=== PATIENT | female | born 1960 | race Caucasian/White ===

== ENCOUNTER 2016-09-22 10:44 | Emergency (ER) | payer OTHER ==
--- NOTE | 2016-09-22 12:24 | DIAGNOSTIC IMAGING REPORT ---
PROCEDURE: XR CHEST 2 VIEW INDICATION: CHEST PAIN TECHNIQUE: PA and lateral views. COMPARISON: None. FINDINGS: Lungs are clear. Heart and mediastinum are normal. Thorax is normal. IMPRESSION: 1. Negative chest.
--- NOTE | 2016-09-22 13:15 | ED NURSING NOTES ---
Clinical Report - Nurses [facility] [place] [address] 09/22/2016 10:47 Patient: MARISELA NATION TRIAGE Triage time 1100 AM. Acuity: LEVEL 2. Chief Complaint: CHEST PAIN and SHORTNESS OF BREATH and DIFFICULTY BREATHING. Alert. No acute distress. SEPSIS SCREEN: Sepsis Screen. Negative (no infection suspected/documented). --11:20 Eli Diana R.N. 11:01 09/22/16. BP: 133/69 (large adult cuff) taken on the left arm, via an automated monitor, while lying. HR: 87. RR: 16 (regular and unlabored). O2 saturation: 98% on room air. Temp: 97.8 F (oral). Pain level now: 8/10. Additional comments: arthritis pain. --11:20 Eli Diana R.N. Weight: 124.7 kg stated. Height/Length: 70 inches Per Patient. BMI: 39.4. --11:01 Eli Diana R.N. Medications Aspirin Oral. --11:07 Eli Diana R.N. Simvastatin Oral. --11:07 Eli Diana R.N. Atenolol Oral. --11:08 Eli Diana R.N. Albuterol Sulfate Inhalation. --11:08 Eli Diana R.N. Tramadol HCL Oral. --11:08 Eli Diana R.N. CeleBREX Oral. --11:08 Eli Diana R.N. Allergies No Known Drug Allergy. --11:07 Eli Diana R.N. Medication/allergy information source: the patient. --11:20 Eli Diana R.N. History Arrived by private vehicle. Historian: patient. Primary physician (Dr. Ben Johnson). ( Pt states having chest pain like symptoms for about 2 months with SOB and "gasping for air" admits to dizziness, felt a "pooping feeling in her heart". Missed her 2 doctor appointments( one today) to follow-up for her "urinary tract infection" feels weak and decided to come to ED to get further evaluation. Pt does take Nitroglycerin but has not had a script in a "while"). This started yesterday. This is a recurrent problem and onset was gradual. (2 months ago). She has had fever and difficulty breathing. No sweating episodes, nausea, vomiting or cough. Treatment BATHROOM TILING PROFESSIONAL: None. PAST MEDICAL HX: Immunizations: up-to-date. Last normal menstrual period- several years. SOCIAL HX: Heavy tobacco smoker (cigarette)- less than 1 pack per day. History of occasional drug use: marijuana. (once a month). No alcohol use. No infectious disease exposure. ABUSE ASSESSMENT: No report of abuse. SELF HARM ASSESSMENT: A self harm assessment was performed. The patient answered "no" to the question "Do you have thoughts of harming or killing yourself?" and "Have you recently had thoughts about harming or killing others?". FALL RISK ASSESSMENT: Fall risk assessment completed. No fall risk identified. NUTRITIONAL RISK ASSESSMENT: The nutritional risk assessment revealed no deficiencies. FUNCTIONAL ASSESSMENT: Functional assessment: no impairments noted. LEARNING NEEDS ASSESSMENT: The learning needs assessment revealed no barriers. SKIN INTEGRITY ASSESSMENT: Skin integrity risk assessment completed. No skin integrity risk identified. --11:20 Eli Diana R.N. PROBLEMS: Hepatitis C. Pelvic Inflammatory Disease. Cervical Cancer. Knee Injury. Neck Injury. Hyperlipidemia. Hypertension. Asthma. Arthritis. Angina. --11:11 Eli Diana R.N. Urinary Incontinence. Cancer. Chronic Back Pain. Hepatitis. Obesity. --11:41 Eli Diana R.N. ADDITIONAL SURGERIES: Breast Biopsy. Tubal Ligation. --11:11 Eli Diana R.N. Interventions ID band on patient. ID and allergy band checked. CHEST PAIN protocol initiated at triage. --11:20 Eli Diana R.N. PHYSICAL ASSESSMENT Ambulatory to room. In place: compliance monitor and O2 sat monitor. GENERAL / NEURO / PSYCH: Alert. Oriented X 4. Appears in no acute distress. HEENT: Mucous membranes are pink. RESPIRATORY: Respirations not labored. Chest nontender. Breath sounds within normal limits. CVS: Normal sinus rhythm noted. Heart sounds within normal limits. Pulses within normal limits. Capillary refill less than 2 seconds. GI / : Abdomen soft and nontender. SKIN: Skin is warm and dry. Normal skin turgor. --11:20 Eli Diana R.N. NURSING PROGRESS NOTES EKG time: (1107). EKG was performed by a tech and shown to the ED physician. --11:22 Duc Escalante 11:15 09/22/2016 Aspirin PO Tablets 325 mg given. Allergies verified and confirmed 5 rights. --11:37 Eli Diana R.N. 11:28 09/22/2016 Site #1 started via IV in the left with an 22g angiocath; two attempts. Blood drawn: rainbow set. Labeled in the presence of the patient and sent to the lab. Saline lock flushed with 10 mL saline. --11:38 Eli Diana R.N. The initial plan of care for this patient has been created This plan of care was discussed with the patient. Monitoring of patient in place. EKG time: (1115 AM). Patient ID band checked for patient name, birthdate and medical record number: patient confirmed. Blood samples drawn from the left hand IV site by nurse per protocol ; labeled in presence of the patient and sent to lab: rainbow set: cardiac enzymes (1st set). Patient gowned and gowned. Warming measures: blanket applied. Reassurance given and given. Founder And Chief Technical Officer provided for the rectal exam by the physician. The patient has had no adverse reaction. GENERAL / NEURO / PSYCH: Denies anxiety. HEENT: Denies headache. RESPIRATORY: Denies difficulty breathing. No respiratory distress present. Respiratory distress present. No decreased breath sounds. GI / : Denies nausea. SKIN: Skin is warm and dry. Skin color within normal limits. Two patient identifiers checked. Call light placed in reach. Side rails up x 1. Brakes of bed on. Brakes of chair on. --11:38 Eli Diana R.N. Cardiac rhythm: normal sinus rhythm. Monitoring of patient in place. Reassurance given. The patient is calm. Patient transported to radiology by stretcher. Two patient identifiers checked. Call light placed in reach. Side rails up x 2. Bed placed in lowest position. Brakes of bed on. Brakes of chair on. --11:44 Eli Diana R.N. 11:41 09/22/16. BP: 104/69 (large adult cuff) taken on the left arm, via an automated monitor, while lying. HR: 72 (regular and normal rate). RR: 12 (regular). O2 saturation: 100%. Pain level now: 12/12. --11:44 Eli Diana R.N. 11:45 09/22/16. BP: 124/69. HR: 78. RR: 18. O2 saturation: 100% on room air. Pain level now: 11/11. --12:19 Eli Daina R.N. 11:45 PM late entry -. Cardiac rhythm: normal sinus rhythm. The patient is calm. Overall patient status is improved- she states feels better. Patient returned from radiology by stretcher. Two patient identifiers checked. Call light placed in reach. Side rails up x 2. Bed placed in lowest position. Brakes of bed on. Brakes of chair on. --12:19 Eli Diana R.N. 12:00 09/22/2016 Aspirin PO Response: no adverse reaction. --12:48 Eli Diana R.N. 12:21 09/22/2016 Started bag #1 1000 mL IV Fluids IV NS (Saline); bolus of 500 mL over 30 minute(s) then at 500 mL/hr over 1 hour(s) via site #1 via IV pump. Allergies verified and confirmed 5 rights. IV patency established. IV site checked: no pain, redness, or swelling. IV flushed thoroughly pre- and post-medication administration. --12:21 Eli Diana R.N. 13:04 09/22/2016 IV Fluids IV NS Response: no adverse reaction. --13:04 Eli Diana R.N. 13:04 09/22/2016 IV Fluids IV NS via IV site #1 Rate Changed: bag #1 decreased to 500 mL/hr via IV pump. IV patency established. IV site checked: no pain, redness, or swelling. IV flushed thoroughly. Confirmed 5 Rights. --13:04 Eli Diana R.N. Monitoring of patient in place. Reassurance given. Reassessment after fluids administered. She reports no complaints. Overall patient status is improved- she states feels better. RESPIRATORY: Denies difficulty breathing. CVS: Denies chest pain. Call light placed in reach. --13:10 Eli Diana R.N. 13:09/22/16. BP: 117/87 (large adult cuff) taken on the right arm, while lying. HR: 68. RR: 18. O2 saturation: 98% on room air. Pain level now: 0/10. --13:10 Eli Diana R.N. 14:00 09/22/2016 Bactrim DS (Sulfamethoxazole-TMP DS) PO 1 tab given. Allergies verified and confirmed 5 rights. --14:00 Beryl Carrizales R.N. ( First meeting with pt at discharge.). --14: Beryl Carrizales R.N. 14:09/22/2016 Site #1 removed upon discharge. Pressure dressing applied. --14: Beryl Carrizales R.N. 14:09/22/2016 IV Fluids IV NS Discontinued: bag #1 infused upon discharge. Total amount infused: 950 mL. IV patency established. IV site checked: no pain, redness, or swelling. IV flushed thoroughly. --14: Beryl Carrizales R.N. DISPOSITION / DISCHARGE Condition at departure: improved and stable. No learning barriers present. Patient verbalized understanding. Written instructions provided in [place]. The patient was discharged by the physician. She was discharged home. She left the Emergency Department ambulatory and via bus. --14:11 Beryl Carrizales R.N. 14:09/22/16. BP: 117/56. HR: 77. RR: 18. O2 saturation: 99%. --14:11 Beryl Carrizales R.N. Departure time: 14:Sep 22 2016. --14:11 Beryl Carrizales R.N. The patient left the Emergency Department against medical advice. The patient appears to be oriented x4, coherent and in no acute distress. She stated is leaving the ED due to personal reasons (I'm not staying in the hospital, based on my previous experiences, I'm going home".). --14:14 Beryl Carrizales R.N. Locked/Released at 09/22/2016 19:21 by Beryl Carrizales R.N.
--- NOTE | 2016-09-22 13:15 | ED CLINICAL REPORT ---
Clinical Report - Physicians/Mid Levels [facility] [address] [place] [address] 09/22/2016 10:47 Patient: MARISELA NATION Time Seen: 11:18. Arrived- By private vehicle. Historian- patient. HISTORY OF PRESENT ILLNESS Chief Complaint: CHEST DISCOMFORT. This started yesterday recurrent symptoms since yesterday, but has had on and off chest pain for 2 months and UTI symptoms intermittently for weeks and is still present. It was gradual in onset and has been waxing/waning. Onset during light activity. At its maximum, severity described as moderate. When seen in the E.D., severity described as mild. Modifying factors- worsened by movement. Relieved by rest. It is described as dull and well localized and it is described as located in other area (lower left sternal area) and the epigastric area. No radiation. No nausea, vomiting, difficulty breathing or diaphoresis. No additional chest pain. (Pt states having chest pain like symptoms for about 2 months with SOB and "gasping for air" admits to dizziness, felt a "pooping feeling in her heart". Missed her 2 doctor appointments( one today) to follow-up for her "urinary tract infection" feels weak and decided to come to ED to get further evaluation. Pt does take Nitroglycerin but has not had a script in a "while"). Similar symptoms previously: Recent medical care: Not recently seen/assessed. REVIEW OF SYSTEMS No fever, chills, pedal edema, calf pain or fainting episodes. No headache, sore throat, blurred vision, black stools or difficulty with urination. No skin rash, enlarged lymph nodes or bloody stools. The patient has had a mild nonproductive cough. No blood tinged sputum or frankly bloody sputum. She has had moderate, crampy, intermittent abdominal pain (none now, but has noted over past several months occasionally). The pain is described as generalized. She has had joint pain. Has had similar previous symptoms of joint pain. All systems otherwise negative, except as recorded above. PAST HISTORY Primary physician (Dr. Ben Johnson). Angina pectoris. Hypertension. Asthma. Hyperlipidemia. Type C hepatitis. Gallstones. Pelvic Inflammatory Disease. Arthritis. Chronic back pain. Obesity. History of cervical cancer. (chronic lower extremity edema Chronic neck pain). Surgeries: Breast biopsy. Tubal ligation. SOCIAL HISTORY Smoker- current status unknown. Occasional alcohol use. History of drug use: marijuana. ADDITIONAL NOTES The nursing notes have been reviewed. PHYSICAL EXAM Vital Signs: 09/22/2016 11:01 BP: 133/69. HR: 87. RR: 16. O2 saturation: 98%. Temp: 97.8 F. Pain level now: 04/13. Appearance: Alert. Oriented X3. No acute distress. Eyes: Pupils equal, round and reactive to light. Eyes normal inspection. No scleral icterus or pale conjunctivae. ENT: Pharynx normal. No pharyngeal erythema or tonsillar exudate. The mucous membranes are not dry. Neck: Normal inspection. Neck supple. No JVD, meningeal signs, lymphadenopathy or thyromegaly. CVS: Normal heart rate and rhythm. Heart sounds normal. Pulses normal. Respiratory: No respiratory distress. Chest pain reproducible (lower left chest wall anteriorly). Breath sounds normal. No decreased air movement, rales, rhonchi, wheezes or prolonged expiration. Abdomen: Soft and nontender. No mass. Obese. Back: Normal external inspection. Skin: Skin warm and dry. Normal skin color. No rash. Normal skin turgor. Extremities: Extremities exhibit normal ROM. No calf tenderness. Neuro: Oriented X 3. No motor deficit. No sensory deficit. LABS, X-RAYS, AND EKG EKG: EKG time: (11:07). Normal sinus rhythm. Rate: 75. Normal P waves. Normal GLEN. Normal QRS complex. Normal axis. Normal ST and T waves. The study has been interpreted contemporaneously by me. The EKG appears to be a good tracing. Rhythm Strip #1: Normal sinus rhythm. Regular rhythm. Narrow QRS complexes. Chest X-ray: No acute disease. Normal lung markings present. Normal heart size. Mediastinum normal. Great vessels normal. No infiltrate. Views: PA and lateral. Technique: good. The X-rays were interpreted contemporaneously by me. Laboratory Tests: UA-Culture if indicated: (BROOK: 09/22/2016 12:28) ( MsgRcvd 09/22/2016 12:53) Final results Test Result Flag Units (Reference) URINE COLOR STRAW URINE APPEARANCE CLEAR URINE GLUCOSE NEGATIVE (NEGATIVE) URINE BILIRUBIN NEGATIVE (NEGATIVE) URINE KETONE TRACE (NEGATIVE) URINE SPECIFIC GRAVITY 1.025 (1.010-1.030) URINE PH 6.0 (5.0-8.0) URINE PROTEIN NEGATIVE (NEGATIVE) URINE UROBILINOGEN 0.2 EU/dL (0.2-1.0) URINE NITRITE NEGATIVE (NEGATIVE) URINE BLOOD NEGATIVE (NEGATIVE) URINE LEUK ESTERASE TRACE (NEGATIVE) URINE RBC 3-5 rbc/hpf (0-1) URINE WBC 5-10 wbc/hpf (0-1) URINE EPITHELIAL CELLS 1-3 EPI/hpf (0-5) URINE BACTERIA MODERATE (2+ TO 3+) (NONE SEEN) URINE COMMENT CULTURE INDICATED URINE CULTURES ARE SET-UP BASED ON THE FOLLOWING CRITERIA:POSITIVE NITRITEPOSITIVE LEUKOCYTE ESTERASEGREATER THAN 10 WHITE BLOOD CELLSMODERATE (2+) OR GREATER BACTERIA CBC w Diff: (BROOK: 09/22/2016 11:35) ( MsgRcvd 09/22/2016 11:44) Final results Test Result Flag Units (Reference) WHITE BLOOD COUNT 11.9 H K/uL (4.5-11.5) RED BLOOD COUNT 4.63 M/uL (4.00-5.20) HEMOGLOBIN 13.3 gm/dL (12.0-16.0) HEMATOCRIT 40.7 % (36.0-46.0) MEAN CELL VOLUME 88 fL (80-100) MEAN CORPUSCULAR HGB 29 pg (26-34) MEAN CORPUSCULAR HGB CONC 33 g/dL (31-37) RED CELL DISTRIBUTION WIDTH 14.9 H % (11.6-14.8) PLATELET COUNT 271 K/uL (150-400) NEUTROPHIL % 40.7 L % (50-75) LYMPH % 48.3 H % (25-40) MONO % 9.2 % (3-14) EOSINOPHIL % 1.2 % (0-4) BASOPHIL % 0.6 % (0-2) [id number]: (BROOK: 09/22/2016 11:35) ( MsgRcvd 09/22/2016 11:52) Final results Test Result Flag Units (Reference) D-DIMER QUANTITATIVE 0.45 ug/mLFEU (0.27-0.52) The primary value of this quantitative assay relates toits negative predictive value (i.e. exclusion) of pulmonaryembolism/deep vein thrombosis/DIC.Elevated levels of d-dimer may also occur with:, age, cancer, inflammation, liver disease,post-op, infection, hematoma, coronary disease, peripheralarteriopathy, bleeding disorders and thrombolytic treatment.Results should be correlated with other clinical andradiological data.Testing Methodology: Latex Immunoassay Urine Drug Screen: (BROOK: 09/22/2016 12:28) ( [facility] 09/22/2016 13:00) Final results Test Result Flag Units (Reference) AMPHETAMINE/METHAMPHETAMINE NEGATIVE (NEGATIVE) BARBITURATE NEGATIVE (NEGATIVE) BENZODIAZEPINE NEGATIVE (NEGATIVE) CANNABINOID NEGATIVE (NEGATIVE) COCAINE POSITIVE H (NEGATIVE) ECSTASY NEGATIVE (NEGATIVE) METHADONE NEGATIVE (NEGATIVE) OPIATE NEGATIVE (NEGATIVE) The urine drug screen is a qualitative screening test fordrug overdose and abuse. All screen results should beconsidered as presumptive.Drugs screened for are as follows:BenzodiazepinesCocaineAmphetamines/MetamphetaminesTHC (Tetrahydrocannabinol)OpiatesBarbituratesEcstasyMethadonePositive results are unconfirmed. For confirmation, notifythe lab for the specimen to be sent to the reference lab.All confirmations must be performed by a differentmethodology.The ingestion of natural herbal and plant productscontaining Ephedra/Ephedra metabolites can produce in urineone or more substances capable of cross reacting withamphetamine/methamphetamine immunoassays. These testsprovide a preliminary result only. A more specificalternative chemical method must be used to obtain aconfirmed analytical result. BNP: (BROOK: 09/22/2016 11:35) ( RigRcvd 09/22/2016 12:03) Final results Test Result Flag Units (Reference) B-TYPE NATRIURETIC PEPTIDE 48.1 pg/ml (5-100) CHEM 13 PANEL: (BROOK: 09/22/2016 11:35) ( MsgRcvd 09/22/2016 12:48) Final results Test Result Flag Units (Reference) GLUCOSE 134 H mg/dL (70-110) BUN 13 mg/dL (7-18) CREATININE 0.9 mg/dL (0.6-1.3) Estimated GFR >60 mL/min Estimated GFR- >60 mL/min Note: Persistent reduction over 3 months in eGFR<60 mL/min/1.73 m2 defines CKD. Patients with eGFR values>=60 mL/min/1.73 m2 may also have CKD if evidence ofpersistent proteinuria. Additional information may be foundat [email or web address].org. SODIUM 140 mmol/L (136-145) POTASSIUM 4.4 mmol/L (3.5-5.1) CHLORIDE 104 mmol/L (98-107) CARBON DIOXIDE 26 mmol/L (21-32) CALCIUM 8.4 L mg/dL (8.5-10.1) TOTAL PROTEIN 7.4 g/dL (6.4-8.2) ALBUMIN 3.4 g/dL (3.3-5.0) BILIRUBIN, TOTAL 0.3 mg/dL (0.0-1.0) ALKALINE PHOSPHATASE 110 U/L (46-116) AST (SGOT) 60 H U/L (15-37) ALT (SGPT) 91 H U/L (12-78) CPK 80 U/L (24-260) TROPONIN I <0.05 ng/mL (0.00-1.5) TROPONIN REFERENCE RANGE:<0.1 NEGATIVE0.1-1.5 INDETERMINANT>1.5 POSITIVE MAGNESIUM 2.0 mg/dL (1.8-2.4) AMYLASE 28 U/L (25-115) ACETAMINOPHEN 0 L ug/mL (10-30) . Pulse Oximetry: 09/22/2016 11:01 O2 saturation: 98%. (FIO2 - room air). Interpretation: normal. PROGRESS AND PROCEDURES Course of Care: Normal Saline 1 liter IVPB given. ASA 325 mg PO given. Bactrim DS 1 tab PO. 13:39 09/22/16. After long discussion with pt, she is refusing admission, despite my strong recommendations. Patient/family counseled. Old ED records reviewed. Patient has had multiple ED visits. Disposition: Not admitted. Discharged. Condition: stable and improved. CLINICAL IMPRESSION Precordial chest pain characterized as "discomfort" .12 lead EKG performed. Gallbladder disease with gallstone (by history). Occasional substance abuse- marijuana, cocaine with drug induced mood disorder. Abnormal liver function test: AST/SGOT and ALT/SGPT (with history of chronic hepatitis C). Acute urinary tract infection with cystitis. Constipation INSTRUCTIONS Avoid stimulants (such as cigarettes, coffee, cold medicines, sinus medicines, street drugs). Avoid alcohol and NSAIDS. Examples of NSAIDS include aspirin, ibuprofen (Advil) and naproxen (Aleve). Avoid fatty, fried/greasy, lactose-containing (such as milk, cheese and ice cream), salty and spicy foods. Drink plenty of fluids. Do not smoke. Seek medical help to quit smoking. Warnings: Further evaluation is necessary in order to recheck abnormal lab, obtain test results, conduct further tests and assess the possibility of serious illness. It is very important to follow up with a physician. GENERAL WARNINGS: Return or contact your physician immediately if your condition worsens or changes unexpectedly, if not improving as expected, or if other problems arise. Prescription Medications: Hydrocodone/APAP 5mg / 325mg: take 1-2 orally every 6 hours as needed for pain. Dispense ten (10). No refill. Trimethoprim-Sulfamethoxazole DS: take 1 tablet orally every 12 hours for 7 days. Dispense fourteen (14). No refills. OTC Medications: Take aspirin, Colace, Dulcolax, magnesium citrate and Fleets enema according to label instructions. Available over the counter. (325 mg / day) Robitussin DM cough syrup (available over the counter): take according to label instructions Follow-up: Follow up with your doctor Tocher or his collegue tomorrow. AMA warnings: Oriented to person, place, and time. Gives appropriate answers and rational explanation of refusal of care. No indication for involuntary commitment is present, signs of psychosis, auditory hallucinations, delusional thinking or suicidal ideations. No slurred speech, visual hallucinations or homicidal ideations. Speaks coherently. Abstract thinking intact. Clinical Impression: the patient has the capacity to make decisions regarding the medical care offered. Relevant issues reviewed and discussed with the patient. The suspected diagnosis, based upon the initiated medical screening exam, is cocaine and chest pain and has been discussed with the patient. Acknowledges understanding of the reasons for recommendations regarding medical tests, admission to facility and further observation. The recommended medical care being refused is hospital admission and has been discussed with the patient. The risks of refusing recommended care that were disclosed are and permanent mental impairment. Discharge instructions were provided. REFUSAL OF CARE STATEMENT (patient to review and sign in discharge instructions): I have read this paragraph. I understand that a doctor at this hospital wants to give me certain medical care. The doctor explained that care to me, and I understand what that care is. The doctor also explained to me what could happen to me if I leave here without having that care, and I understand what he said. I know that I am welcome to return to this hospital at any time to receive the recommended care or any other care that I may need at any time, regardless of my ability to pay for such care. (Electronically signed by Bentley Luther DO 09/23/2016 7:55)
--- NOTE | 2016-09-22 13:15 | ED ORDER SUMMARY ---
..... Patient: MARISELA NATION OrderSheet [facility] VisitID: [id number] [place] [address] 56y, F Registration Date/Time: 09/22/2016 ORDER SHEET Weight: 124.7 kg (stated) Allergies: No Known Drug Allergy GENERAL ORDERS: Chest 2V Urgent (11:09/22/2016 [facility] DO) (Ack 11:21 LTapper) (11:42 EHassan R.N.) Emergency Services Director (Continuous) (:09/22/2016 [facility] ) (11:42 EHassan R.N.) UA-Culture if indicated Urgent (:09/22/2016 [facility]) (Ack 11:21 LTapper) (12:47 EHassan R.N.) Cardiac Panel Stat (09/22/2016 [facility]) (Ack 11:21 LTapper) (11:42 EHassan R.N.) BNP Urgent (11:09/22/2016 [facility] DO) (Ack 11:21 LTapper) (11:42 EHassan R.N.) D-[facility]imer [facility] (Ack 11:21 LTapper) (11:42 EHassan R.N.) Amylase Urgent (11:09/22/2016 [facility]als[facility] DO) (Ack 11:21 LTapper) (11:42 EHassan R.N.) [facility]ulse [facility]xim[facility] (11:42 EHassan R.N.) EKG - ER Stat ([facility] (Ack 11:21 LTapper) (11:21 LTapper) Vitals (11:[facility]22/2016 [facility] (11:42 EHassan R.N.) Urine Drug Screen Urgent (11:09/22/2016 [facility] (Ack 11:28 LTapper) (12:47 EHassan R.N.) Acetaminophen Level Urgent (11:23 [facility]22/2016 [facility] (Ack 11:28 LTapper) (12:20 EHassan R.N.) MEDICATION ORDERS: Aspirin PO 325 mg (Do not crush or chew, NOW) (11:19 09/22/2016 akryna SPICER) (11:37 Nithya R.N.) Bactrim DS PO (Tablet 800-160 mg) 1 tab (NOW) (13:12 [facility]/22/2016 [facility] (Ack 13:56 Juan C R.N.) (14:00 Chakae R.N.) IV FLUIDS: IV NS : initial bolus 500 mL (1000 mL/hr), then 500 mL/hr for X3 (NOW) (11:19 09/22/2016 [facility]) (12:21 EHassan R.N.) ORDER SHEET NOTES: [Electronically signed by Beryl Carrizales R.N. (19:21 09/22/2016)] [Electronically signed by Bentley Luther DO (07:55 09/23/2016)] [Electronically locked/signed by Beryl Carrizales R.N. (19:21 09/22/2016)]
--- NOTE | 2016-09-22 13:15 | ED ORDER SUMMARY ---
..... Patient: MARISELA NATION OrderSheet [facility] VisitID: [id number] [place] [address] 56y, F Registration Date/Time: 09/22/2016 ORDER SHEET Weight: 124.7 kg (stated) Allergies: No Known Drug Allergy GENERAL ORDERS: Chest 2V Urgent ([facility] (Ack 11:21 LTapper) (11:42 EHassan R.N.) Window Covering Sales Consultant (Continuous) (:09/22/2016 [facility] (11:42 EHassan R.N.) UA-Culture if indicated Urgent (:09/22/2016 [facility]) (Ack 11:21 LTapper) (12:47 EHassan R.N.) Cardiac Panel Stat (09/22/2016 [facility]) (Ack 11:21 LTapper) (11:42 EHassan R.N.) BNP Urgent (11:09/22/2016 [facility]) (Ack 11:21 LTapper) (11:42 EHassan R.N.) D-Dimer Urgent ([facility]/2016 [facility] (Ack 11:21 LTapper) (11:42 EHassan R.N.) Amylase Urgent (11:09/22/2016 [facility] DO) (Ack 11:21 LTapper) (11:42 EHassan R.N.) Pulse oximeter (11:09/22/2016 [facility]) (11:42 EHassan R.N.) EKG - ER Stat ([facility]22/2016 [facility] (Ack 11:21 LTapper) (11:21 LTapper) Vitals (11:09/22/2016 [facility]) (11:42 EHassan R.N.) Urine Drug Screen Urgent (11:09/22/2016 [facility]) (Ack 11:28 LTapper) (12:47 EHassan R.N.) Acetaminophen Level Urgent (11:23 09/22/2016 [facility] (Ack 11:28 LTapper) (12:20 EHassan R.N.) MEDICATION ORDERS: Aspirin PO 325 mg (Do not crush or chew, NOW) (11:19 09/22/2016 karyna SPICER) (11:37 Nithya R.N.) Bactrim DS PO (Tablet 800-160 mg) 1 tab (NOW) (13:12 [facility]/22/2016 [facility] (Ack 13:56 Juan C R.N.) (14:00 Chakae R.N.) IV FLUIDS: IV NS : initial bolus 500 mL (1000 mL/hr), then 500 mL/hr for X3 (NOW) (11:19 09/22/2016 [facility]) (12:21 EHassan R.N.) ORDER SHEET NOTES: [Electronically signed by Beryl Carrizales R.N. (19:21 09/22/2016)] [Electronically signed by Bentley Luther DO (07:55 09/23/2016)] [Electronically locked/signed by Beryl Carrizales R.N. (19:21 09/22/2016)]
--- NOTE | 2016-09-23 07:56 | ED MAR SUMMARY ---
..... Medication Administration Record [facility] [address] [place] [address] Patient: MARISELA NATION Visit ID: [id number] 56y, F Weight: 124.7 kg Height/Length: 70 in BMI: 39.4 ALLERGIES: No Known Drug Allergy Given 11:15 09/22/2016 Eli Diana R.N. Medication Administered: ASPIRIN [PO], Dose: 325 mg Tablets PO. Medication Ordered: Aspirin PO 325 mg (Do not crush or chew, NOW). Start 12:21 09/22/2016 Eli Diana R.N., Stop 14:09 09/22/2016 Beryl Carrizales R.N. Medication Administered: IV NS (SALINE), Dose: IV Fluids over 1 hour(s), Rate: 500 mL/hr, Bolus: 500 mL over 30 minute(s), Dispensed: 1000 mL bag, Site: #1 left. Medication Ordered: IV NS : initial bolus 500 mL (1000 mL/hr), then 500 mL/hr for X3 (NOW). Given 14:00 09/22/2016 Beryl Carrizales R.N. Medication Administered: BACTRIM DS [PO] (SULFAMETHOXAZOLE-TMP DS), Dose: 1 tab PO. Medication Ordered: Bactrim DS PO (Tablet 800-160 mg) 1 tab (NOW).
--- NOTE | 2016-09-23 07:56 | ED MAR SUMMARY ---
..... Medication Administration Record [facility] [address] [place] [address] Patient: MARISELA NATION Visit ID: [id number] 56y, F Weight: 124.7 kg Height/Length: 70 in BMI: 39.4 ALLERGIES: No Known Drug Allergy Given 11:15 09/22/2016 Eli Diana R.N. Medication Administered: ASPIRIN [PO], Dose: 325 mg Tablets PO. Medication Ordered: Aspirin PO 325 mg (Do not crush or chew, NOW). Start 12:21 09/22/2016 Eli Diana R.N., Stop 14:09 09/22/2016 Beryl Carrizales R.N. Medication Administered: IV NS (SALINE), Dose: IV Fluids over 1 hour(s), Rate: 500 mL/hr, Bolus: 500 mL over 30 minute(s), Dispensed: 1000 mL bag, Site: #1 left. Medication Ordered: IV NS : initial bolus 500 mL (1000 mL/hr), then 500 mL/hr for X3 (NOW). Given 14:00 09/22/2016 Beryl Carrizales R.N. Medication Administered: BACTRIM DS [PO] (SULFAMETHOXAZOLE-TMP DS), Dose: 1 tab PO. Medication Ordered: Bactrim DS PO (Tablet 800-160 mg) 1 tab (NOW).
--- NOTE | 2016-09-23 07:56 | ED MED RECONCILIATION SUMMARY ---
Patient: MARISELA NATION Medication Reconciliation Report [facility] VisitID: [id number] [address] [place] [address] 56y, F Registration Date/Time: 09/22/2016 Weight: 124.7 kg Height/Length: 70 in. BMI: 39.4 ALLERGIES: No Known Drug Allergy The patient's Home Medications are listed below: THE FOLLOWING MEDICATIONS NEED TO BE RECONCILED: Albuterol Sulfate Inhalation Aspirin Oral Atenolol Oral CeleBREX Oral Simvastatin Oral Tramadol HCL Oral The source(s) of the original Home Medication information: patient The following Medications were given to the patient in the Emergency Department: Aspirin [PO] PO 325 mg, administered: 09/22/2016 11:15:00 AM IV NS IV Fluids bolus 500 mL over 30 minute(s), then 500 mL/hr, administered: 09/22/2016 12:21:00 PM Bactrim DS [PO] PO 1 tab, administered: 09/22/2016 2:00:00 PM The following Medications were prescribed to the patient: Take aspirin, Colace, Dulcolax, magnesium citrate and Fleets enema according to label instructions. Available over the counter.(325 mg / day) -- Bentley Luther DO Robitussin DM cough syrup (available over the counter): take according to label instructions -- Bentley Luther DO Hydrocodone/APAP 5mg / 325mg: take 1-2 orally every 6 hours as needed for pain. Dispense ten (10). No refill. -- Bentley Luther DO Trimethoprim-Sulfamethoxazole DS: take 1 tablet orally every 12 hours for 7 days. Dispense fourteen (14). No refills. -- Bentley Luther DO
--- NOTE | 2016-09-23 07:56 | ED DISCHARGE INSTRUCTIONS ---
Patient: MARISELA NATOIN General Instructions [facility] VisitID: [id number] [place] [address] 56y, F Registration Date/Time: 09/22/2016 Precordial chest pain characterized as "discomfort" .12 lead EKG performed. Gallbladder disease with gallstone (by history). Occasional substance abuse- marijuana, cocaine with drug induced mood disorder. Abnormal liver function test: AST/SGOT and ALT/SGPT (with history of chronic hepatitis C). Acute urinary tract infection with cystitis. Constipation INSTRUCTIONS Avoid stimulants (such as cigarettes, coffee, cold medicines, sinus medicines, street drugs). Avoid alcohol and NSAIDS. Examples of NSAIDS include aspirin, ibuprofen (Advil) and naproxen (Aleve). Avoid fatty, fried/greasy, lactose-containing (such as milk, cheese and ice cream), salty and spicy foods. Drink plenty of fluids. Do not smoke. Seek medical help to quit smoking. Warnings: Further evaluation is necessary in order to recheck abnormal lab, obtain test results, conduct further tests and assess the possibility of serious illness. It is very important to follow up with a physician. GENERAL WARNINGS: Return or contact your physician immediately if your condition worsens or changes unexpectedly, if not improving as expected, or if other problems arise. Prescription Medications: Hydrocodone/APAP 5mg / 325mg: take 1-2 orally every 6 hours as needed for pain. Dispense ten (10). No refill. Trimethoprim-Sulfamethoxazole DS: take 1 tablet orally every 12 hours for 7 days. Dispense fourteen (14). No refills. OTC Medications: Take aspirin, Colace, Dulcolax, magnesium citrate and Fleets enema according to label instructions. Available over the counter. (325 mg / day) Robitussin DM cough syrup (available over the counter): take according to label instructions Follow-up: Follow up with your doctor Tocher or his collegue tomorrow. AMA warnings: Oriented to person, place, and time. Gives appropriate answers and rational explanation of refusal of care. No indication for involuntary commitment is present, signs of psychosis, auditory hallucinations, delusional thinking or suicidal ideations. No slurred speech, visual hallucinations or homicidal ideations. Speaks coherently. Abstract thinking intact. Clinical Impression: the patient has the capacity to make decisions regarding the medical care offered. Relevant issues reviewed and discussed with the patient. The suspected diagnosis, based upon the initiated medical screening exam, is cocaine and chest pain and has been discussed with the patient. Acknowledges understanding of the reasons for recommendations regarding medical tests, admission to facility and further observation. The recommended medical care being refused is hospital admission and has been discussed with the patient. The risks of refusing recommended care that were disclosed are and permanent mental impairment. Discharge instructions were provided. REFUSAL OF CARE STATEMENT (patient to review and sign in discharge instructions): I have read this paragraph. I understand that a doctor at this hospital wants to give me certain medical care. The doctor explained that care to me, and I understand what that care is. The doctor also explained to me what could happen to me if I leave here without having that care, and I understand what he said. I know that I am welcome to return to this hospital at any time to receive the recommended care or any other care that I may need at any time, regardless of my ability to pay for such care. ADDITIONAL INFORMATION Constipation (Adult) Constipation is bowel movements that are less frequent than usual. Stools often become very hard and difficult to pass. This may lead to abdominal pain and bloating. It may also cause painful bowel movements. Constipation may be due to a diet thats low in fiber. Some medications, especially pain medications, can also cause it. Constipation may be treated with enemas, suppositories, laxatives or stool softeners. Your doctor will advise you which will work best for you. Follow the advice below to help avoid this problem in the future. Home Care Medication: Take any medicines as directed. Some laxatives are safe only for occasional use. Others can be taken on a regular basis. Talk to your doctor or pharmacist if you have questions. General Care: Prescription pain medications can cause constipation. If you are prescribed pain medications, ask the doctor whether you should also take a stool softener. A diet high in fiber with plenty of fluids helps to maintain regular, soft bowel movements. The following foods are good sources of dietary fiber: Cereals and breads: Whole grain cereal with bran, oatmeal, rolled oats, whole grain breads Fruits: All fruits (fresh and dried), raisins, prunes, apricots, berries, figs Vegetables: Any fresh vegetables, especially peas, broccoli, brussels sprouts, winter squash, green beans, cauliflower, art beans, carrots Other: Popcorn, brown rice Drink plenty of water when you increase the amount of fiber you eat. Follow Up with your doctor or return to this facility if symptoms do not improve in the next few days. You may require further tests or a referral to a specialist. Get Prompt Medical Attention if any of the following occur: Fever over 100.4F (38C) Failure to resume normal bowel movements Increasing abdominal or back pain Nausea or vomiting Abdominal swelling Blood in the stool Weakness, dizziness or fainting Unexpected vaginal bleeding [place] Diet A bland diet is used for patients with an upset stomach. It consists of foods that are mild and easy to digest. It is better to eat small frequent meals rather than three large meals a day. BEVERAGES OK: Fruit juices, non-caffeinated teas and coffee, non-carbonated meneses AVOID: Carbonated beverage, caffeinated tea and coffee, all alcoholic beverages BREAD OK: Refined white, wheat or rye bread, tasia or soda crackers, [place] toast, plain rolls, bagels AVOID: Whole-grain bread CEREAL OK: Refined cereals: cooked or ready to eat AVOID: Whole grain cereals and granola, or those containing bran, seeds or nuts DESSERTS OK: Peanut butter and all others except those to "avoid" AVOID: Chocolate, cocoa, coconut, popcorn, nuts, seeds, jam, marmalade FRUITS OK: Canned, cooked, frozen or fresh fruits without seeds or tough skin AVOID: Olives, skin and seeds of fruit MEATS OK: All fresh or preserved meat, fish and fowl AVOID: Any that are prepared with those spices to "avoid" CHEESE & EGGS OK: Eggs, cottage cheese, cream cheese, other cheeses AVOID: All cheeses made with those spices to "avoid" POTATOES & PASTA OK: Potato, rice, macaroni, noodles, spaghetti AVOID: None SOUPS OK: All soups without heavy seasoning AVOID: Soups made with those spices to "avoid" VEGETABLES OK: Canned, cooked, fresh or frozen mildly flavored vegetables without seeds, skins or coarse fiber AVOID: Vegetables prepared with those spices to "avoid"; skin and seeds of vegetables and those with coarse fiber SPICES OK: Salt, lemon and pok[place] juice, vinegar, all extracts, alexandrea, cinnamon, thyme, mace, allspice, paprika AVOID: [place] powder, cloves, pepper, seed spices, garlic, gravy pickles, highly seasoned salad dressings How To Quit Smoking Smoking is one of the hardest habits to break. About half of all those who have ever smoked have been able to quit, and most of those (about 70%) who still smoke want to quit. Here are some of the best ways to stop smoking. Keep Trying: It takes most smokers about 8 tries before they are finally able to fully quit. So, the more often you try and fail, the better your chance of quitting the next time! So, don't give up! Go Cold [place]: Most ex-smokers quit cold turkey. Trying to cut back gradually doesn't seem to work as well, perhaps because it continues the smoking habit. Also, it is possible to fool yourself by inhaling more while smoking fewer cigarettes. This results in the same amount of nicotine in your body! Get Support: Support programs can make an important difference, especially for the heavy smoker. These groups offer lectures, methods to change your behavior and peer support. Call the free national Quitline for more information. 897-CJOJ-HGO (094-916-7274). Low-cost or free programs are offered by many hospitals, local chapters of the [place] [employer] (564-469-3216) and the [place] [employer] (093-574-0315). Support at home is important too. Non-smokers can help by offering praise and encouragement. If the smoker fails to quit, encourage them to try again! Knvi-Avo-Enilvbz Medicines: For those who can't quit on their own, Nicotine Replacement Therapy (NRT) may make quitting much easier. Certain aids such as the nicotine patch, gum and lozenge are available without a prescription. However, it is best to use these under the guidance of your doctor. The skin patch provides a steady supply of nicotine to the body. Nicotine gum and lozenge gives temporary bursts of low levels of nicotine. Both methods take the edge off the craving for cigarettes. WARNING: If you feel symptoms of nicotine overdose, such as nausea, vomiting, dizziness, weakness, or fast heartbeat, stop using these and see your doctor. Prescription Medicines: After evaluating your smoking patterns and prior attempts at quitting, your doctor may offer a prescription medicine such as bupropion (Zyban, Wellbutrin), varenicline (Chantix, Champix), a niocotine inhaler or nasal spray. Each has its unique advantage and side effects which your doctor can review with you. Health Benefits Of Quitting: The benefits of quitting start right away and keep improving the longer you go without smokin minutes: blood pressure and pulse return to normal 8 hours: oxygen levels return to normal 2 days: ability to smell and taste begins to improve as damaged nerves start to regrow 2-3 weeks: circulation and lung function improves 1-9 months: decreased cough, congestion and shortness of breath; less tired 1 year: risk of heart attack decreases by half 5 years: risk of lung cancer decreases by half; risk of stroke becomes the same as a non-smoker For information about how to quit smoking, visit the following links: National Cancer [place] , Clearing the Air, Quit Smoking Today - an online booklet. http://www.smokefree.gov/pubs/clearing_the_air.pdf Smokefree.gov http://smokefree.gov/ QuitNet http://www.quitnet.com/ Hydrocodone Bitartrate, Acetaminophen Oral tablet What is this medicine? ACETAMINOPHEN; HYDROCODONE (a set a VIKASH geovanni fen; valerie droe KOE done) is a pain reliever. It is used to treat mild to moderate pain. How should I use this medicine? Take this medicine by mouth. Swallow it with a full glass of water. Follow the directions on the prescription label. If the medicine upsets your stomach, take the medicine with food or milk. Do not take more than you are told to take. Talk to your dispatch machine runner regarding the use of this medicine in children. This medicine is not approved for use in children. What side effects may I notice from receiving this medicine? Side effects that you should report to your doctor or health plant health care technician as soon as possible: allergic reactions like skin rash, itching or hives, swelling of the face, lips, or tongue breathing problems confusion feeling faint or lightheaded, falls stomach pain yellowing of the eyes or skin Side effects that usually do not require medical attention (report to your doctor or health plant health care technician if they continue or are bothersome): nausea, vomiting stomach upset What may interact with this medicine? alcohol antihistamines isoniazid medicines for depression, anxiety, or psychotic disturbances medicines for sleep muscle relaxants naltrexone narcotic medicines (opiates) for pain phenobarbital ritonavir tramadol What if I miss a dose? If you miss a dose, take it as soon as you can. If it is almost time for your next dose, take only that dose. Do not take double or extra doses. Where should I keep my medicine? Keep out of the reach of children. This medicine can be abused. Keep your medicine in a safe place to protect it from theft. Do not share this medicine with anyone. Selling or giving away this medicine is dangerous and against the law. Store at room temperature between 15 and 30 degrees C (59 and 86 degrees F). Protect from light. Keep container tightly closed. Throw away any unused medicine after the expiration date. Discard unused medicine and used packaging carefully. Pets and children can be harmed if they find used or lost packages. What should I tell my health care provider before I take this medicine? They need to know if you have any of these conditions: brain tumor Crohn's disease, inflammatory bowel disease, or ulcerative colitis drink more than 3 alcohol-containing drinks per day drug abuse or addiction head injury heart or circulation problems kidney disease or problems going to the bathroom liver disease lung disease, asthma, or breathing problems an unusual or allergic reaction to acetaminophen, hydrocodone, other opioid analgesics, other medicines, foods, dyes, or preservatives or trying to get breast-feeding What should I watch for while using this medicine? Tell your doctor or health plant health care technician if your pain does not go away, if it gets worse, or if you have new or a different type of pain. You may develop tolerance to the medicine. Tolerance means that you will need a higher dose of the medicine for pain relief. Tolerance is normal and is expected if you take the medicine for a long time. Do not suddenly stop taking your medicine because you may develop a severe reaction. Your body becomes used to the medicine. This does NOT mean you are addicted. Addiction is a behavior related to getting and using a drug for a non-medical reason. If you have pain, you have a medical reason to take pain medicine. Your doctor will tell you how much medicine to take. If your doctor wants you to stop the medicine, the dose will be slowly lowered over time to avoid any side effects. You may get drowsy or dizzy when you first start taking the medicine or change doses. Do not drive, use machinery, or do anything that may be dangerous until you know how the medicine affects you. Stand or sit up slowly. There are different types of narcotic medicines (opiates) for pain. If you take more than one type at the same time, you may have more side effects. Give your health care provider a list of all medicines you use. Your doctor will tell you how much medicine to take. Do not take more medicine than directed. Call emergency for help if you have problems breathing. The medicine will cause constipation. Try to have a bowel movement at least every 2 to 3 days. If you do not have a bowel movement for 3 days, call your doctor or health plant health care technician. Too much acetaminophen can be very dangerous. Do not take Tylenol (acetaminophen) or medicines that contain acetaminophen with this medicine. Many non-prescription medicines contain acetaminophen. Always read the labels carefully. Sulfamethoxazole, Trimethoprim Oral tablet What is this medicine? SULFAMETHOXAZOLE; TRIMETHOPRIM or SMX-TMP (suhl fuh meth OK conchita zohl; trye METH oh prim) is a combination of a sulfonamide antibiotic and a second antibiotic, trimethoprim. It is used to treat or prevent certain kinds of bacterial infections. It will not work for colds, flu, or other viral infections. How should I use this medicine? Take this medicine by mouth with a full glass of water. Follow the directions on the prescription label. Take your medicine at regular intervals. Do not take it more often than directed. Do not skip doses or stop your medicine early. Talk to your dispatch machine runner regarding the use of this medicine in children. Special care may be needed. This medicine has been used in children as young as 2 months of age. What side effects may I notice from receiving this medicine? Side effects that you should report to your doctor or health plant health care technician as soon as possible: allergic reactions like skin rash or hives, swelling of the face, lips, or tongue breathing problems fever or chills, sore throat irregular heartbeat, chest pain joint or muscle pain pain or difficulty passing urine red pinpoint spots on skin redness, blistering, peeling or loosening of the skin, including inside the mouth unusual bleeding or bruising unusually weak or tired yellowing of the eyes or skin Side effects that usually do not require medical attention (report to your doctor or health plant health care technician if they continue or are bothersome): diarrhea dizziness headache loss of appetite nausea, vomiting nervousness What may interact with this medicine? Do not take this medicine with any of the following medications: aminobenzoate potassium dofetilide metronidazole This medicine may also interact with the following medications: YVON inhibitors like benazepril, enalapril, lisinopril, and ramipril cyclosporine digoxin diuretics indomethacin medicines for diabetes methenamine methotrexate phenytoin potassium supplements pyrimethamine sulfinpyrazone tricyclic antidepressants warfarin What if I miss a dose? If you miss a dose, take it as soon as you can. If it is almost time for your next dose, take only that dose. Do not take double or extra doses. Where should I keep my medicine? Keep out of the reach of children. Store at room temperature between 20 to 25 degrees C (68 to 77 degrees F). Protect from light. Throw away any unused medicine after the expiration date. What should I tell my health care provider before I take this medicine? They need to know if you have any of these conditions: anemia asthma being treated with anticonvulsants if you frequently drink alcohol containing drinks kidney disease liver disease low level of folic acid or [id number] dehydrogenase poor nutrition or malabsorption porphyria severe allergies thyroid disorder an unusual or allergic reaction to sulfamethoxazole, trimethoprim, sulfa drugs, other medicines, foods, dyes, or preservatives or trying to get breast-feeding What should I watch for while using this medicine? Tell your doctor or health plant health care technician if your symptoms do not improve. Drink several glasses of water a day to reduce the risk of kidney problems. Do not treat diarrhea with over the counter products. Contact your doctor if you have diarrhea that lasts more than 2 days or if it is severe and watery. This medicine can make you more sensitive to the sun. Keep out of the sun. If you cannot avoid being in the sun, wear protective clothing and use a sunscreen. Do not use sun lamps or tanning beds/booths. Dextromethorphan Hydrobromide, Guaifenesin Oral syrup What is this medicine? DEXTROMETHORPHAN; GUAIFENESIN (dex troe meth OR fan; gwye FEN e sin) is a combination of a cough suppressant and expectorant. It is used for the temporary relief of coughs. This medicine is also used to loosen mucus. How should I use this medicine? Take this medicine by mouth with a full glass of water. Follow the directions on the prescription label. Use a specially marked spoon or container to measure your dose. Household spoons are not accurate. Take your medicine at regular intervals. Do not take it more often than directed. Talk to your dispatch machine runner regarding the use of this medicine in children. Special care may be needed. What side effects may I notice from receiving this medicine? Side effects that you should report to your doctor or health plant health care technician as soon as possible: allergic reactions like skin rash, itching or hives, swelling of the face, lips, or tongue breathing problems confusion excitement, nervousness, restlessness, or irritability Side effects that usually do not require medical attention (report to your doctor or health plant health care technician if they continue or are bothersome): headache stomach upset What may interact with this medicine? Do not take this medicine with any of the following medications: MAOIs like Carbex, Eldepryl, Marplan, Nardil, and Parnate procarbazine This medicine may also interact with the following medications: other medicines for colds or allergy medicines for depression or other mental disturbances What if I miss a dose? If you miss a dose, take it as soon as you can. If it is almost time for your next dose, take only that dose. Do not take double or extra doses. Where should I keep my medicine? Keep out of the reach of children. Store at room temperature between 20 and 25 degrees C (68 and 77 degrees F). Keep bottle tightly closed. Throw away any unused medicine after the expiration date. What should I tell my health care provider before I take this medicine? They need to know if you have any of these conditions: chronic bronchitis kidney disease liver disease lung or breathing disease, like asthma or emphysema unable to sit up an unusual or allergic reaction to dextromethorphan, guaifenesin, other medicines, foods, dyes, bromides, or preservatives or trying to get breast-feeding What should I watch for while using this medicine? Do not treat yourself for a cough for more than 1 week without consulting your doctor or health plant health care technician. If you have a high fever, skin rash, lasting headache, or sore throat, see your doctor. Drink 6 to 8 glasses of water daily while you are taking this medicine to help loosen mucus. You may get drowsy or dizzy. Do not drive, use machinery, or do anything that needs mental alertness until you know how this medicine affects you. Do not stand or sit up quickly, especially if you are an older patient. This reduces the risk of dizzy or fainting spells. Alcohol may interfere with the effect of this medicine. Avoid alcoholic drinks. You have been given the following additional information: Constipation (Adult) Diet, [place] (Adult) Smoking Cessation Hydrocodone Bitartrate, Acetaminophen Oral tablet Sulfamethoxazole, Trimethoprim Oral tablet Dextromethorphan Hydrobromide, Guaifenesin Oral syrup (Electronically signed by Bentley Luther DO 09/23/2016 7:55)
--- NOTE | 2016-09-23 07:56 | ED MED RECONCILIATION SUMMARY ---
Patient: MARISELA NATION Medication Reconciliation Report [facility] VisitID: [id number] [address] [place] [address] 56y, F Registration Date/Time: 09/22/2016 Weight: 124.7 kg Height/Length: 70 in. BMI: 39.4 ALLERGIES: No Known Drug Allergy The patient's Home Medications are listed below: THE FOLLOWING MEDICATIONS NEED TO BE RECONCILED: Albuterol Sulfate Inhalation Aspirin Oral Atenolol Oral CeleBREX Oral Simvastatin Oral Tramadol HCL Oral The source(s) of the original Home Medication information: patient The following Medications were given to the patient in the Emergency Department: Aspirin [PO] PO 325 mg, administered: 09/22/2016 11:15:00 AM IV NS IV Fluids bolus 500 mL over 30 minute(s), then 500 mL/hr, administered: 09/22/2016 12:21:00 PM Bactrim DS [PO] PO 1 tab, administered: 09/22/2016 2:00:00 PM The following Medications were prescribed to the patient: Take aspirin, Colace, Dulcolax, magnesium citrate and Fleets enema according to label instructions. Available over the counter.(325 mg / day) -- Bentley Luther DO Robitussin DM cough syrup (available over the counter): take according to label instructions -- Bentley Luther DO Hydrocodone/APAP 5mg / 325mg: take 1-2 orally every 6 hours as needed for pain. Dispense ten (10). No refill. -- Bentley Luther DO Trimethoprim-Sulfamethoxazole DS: take 1 tablet orally every 12 hours for 7 days. Dispense fourteen (14). No refills. -- Bentley Luther DO
== END 2016-09-22 14:15 | disposition left against medical advice (07) ==
LOC: ED SRH 10:44 → TRANS SRH 13:26 → ED SRH 13:26
DX: R07.2 Precordial pain (principal); N30.00 Acute cystitis without hematuria; K59.00 Constipation, unspecified; R74.8 Abnormal levels of other serum enzymes; F14.14 Cocaine abuse with cocaine-induced mood disorder; F12.10 Cannabis abuse, uncomplicated; I10 Essential (primary) hypertension; F17.200 Nicotine dependence, unspecified, uncomplicated; Z86.19 Personal history of other infectious and parasitic diseases
CPT/HCPCS: 90004; 90100; 90148; 90469; 90616; 91320; 91556; 92530; 92610; 92720; 92760; 92761; 92762; 92763; 92764; 92765; 92766; 92767; 95059; 97000